=== PATIENT | female | born 1990 | race African-American/Black ===

== ENCOUNTER 2016-04-27 22:32 | Emergency (ER) | payer BC | END 2016-04-27 23:25 | disposition home or self-care (01) | LOC: D.ER 22:32 | DX: J01.90 Acute sinusitis, unspecified (principal); J20.9 Acute bronchitis, unspecified; K21.9 Gastro-esophageal reflux disease without esophagitis ==

== ENCOUNTER 2016-05-20 09:22 | Emergency (ER) | payer BC ==
[2016-05-20 10:03] LABS: BASOPHILS 0.1 % (0.0-2.0); EOSINOPHILS 1.7 % (0-7); HEMATOCRIT 34.8 % (36.0-48.0); HEMOGLOBIN 11.3 g/dL (12-16); IMMATURE GRANULOCYTES 0.1 % (0-5); LYMPHOCYTES 29.9 % (15-50); MCH 24.4 pg (26.0-34.0); MCHC 32.5 g/dL (31.0-37.0); MONOCYTES 8.7 % (2-11); NEUTROPHILS 59.5 % (40-80); PLATELET COUNT 364 10x3/uL (130-400); RBC 4.64 10x6/uL (4.00-5.40); RDW 14.8 % (11.5-14.5); WBC 7.6 10x3/uL (4.8-10.8)
[2016-05-20 10:15] LABS: HCG SERUM NEGATIVE (NEGATIVE)
[2016-05-20 10:17] LABS: APPEARANCE HAZY (CLEAR); BILIRUBIN NEGATIVE (NEGATIVE); COLOR YELLOW (YELLOW); GLUCOSE NEGATIVE (NEGATIVE); KETONE SMALL mg/dL (NEGATIVE); LEUKOCYTE ESTERASE NEGATIVE (NEGATIVE); NITRITE NEGATIVE (NEGATIVE); PROTEIN NEGATIVE (NEGATIVE); UROBILINOGEN NORMAL (NORMAL)
[2016-05-20 10:18] LABS: BACTERIA FEW /hpf (NONE SEEN); MUCUS <1+ /lpf (NONE SEEN); RED CELLS - URINE 0-5 /hpf (0-5); WHITE CELLS - URINE OCC /hpf (0-5)
[2016-05-20 10:34] LABS: ALBUMIN 4.4 g/dL (3.4-5.0); ALKALINE PHOSPHATASE 32 U/L (46-116); ALT (SGPT) 15 U/L (10-68); BILIRUBIN - TOTAL 0.58 mg/dL (0.2-1.3); CALC OSMOLALITY 275 mosm/kg (275-300); CALCIUM 9.3 mg/dL (8.5-10.1); CARBON DIOXIDE 28.3 mmol/L (21.0-32.0); CHLORIDE - SERUM 104 mmol/L (98-107); CREATININE - SERUM 0.7 mg/dL (0.6-1.3); GLUCOSE 85 mg/dL (74-106); POTASSIUM - SERUM 3.8 mmol/L (3.5-5.1); PROTEIN - SERUM 8.2 g/dL (6.4-8.2); SODIUM 139 mmol/L (136-145); UREA NITROGEN 9 mg/dL (7-18); eGFR NON AFRICAN AMERICAN > 90 mL/min (90-120)
== END 2016-05-20 12:42 | disposition home or self-care (01) ==
LOC: D.ER 09:22
PROVIDERS: Emergency Medicine
DX: R10.9 Unspecified abdominal pain (principal); K21.9 Gastro-esophageal reflux disease without esophagitis; F17.200 Nicotine dependence, unspecified, uncomplicated

== ENCOUNTER 2016-05-31 18:23 | Emergency (ER) | payer BC | END 2016-05-31 21:00 | disposition left against medical advice (07) | LOC: D.ER 18:23 | DX: R42 Dizziness and giddiness (principal) ==

== ENCOUNTER 2016-07-10 13:42 | Emergency (ER) | payer BC | END 2016-07-10 15:13 | disposition left against medical advice (07) | LOC: D.ER 13:42 | DX: R10.30 Lower abdominal pain, unspecified (principal) ==

== ENCOUNTER 2016-07-10 20:18 | Emergency (ER) | payer BC ==
[2016-07-10 21:18] LABS: BASOPHILS 0.2 % (0-2); EOSINOPHILS 2.2 % (0-7); HEMATOCRIT 36.5 % (36.0-48.0); HEMOGLOBIN 11.5 g/dL (12-16); IMMATURE GRANULOCYTES 0.3 % (0-5); LYMPHOCYTES 33.1 % (15-50); MCH 24.6 pg (26.0-34.0); MCHC 31.5 g/dL (31.0-37.0); MCV 78.2 fL (80.0-100.0); MEAN PLATELET VOLUME 10.2 fL (7.4-10.4); MONOCYTES 8.3 % (2-11); NEUTROPHILS 55.9 % (40-80); PLATELET COUNT 330 10x3/uL (130-400); RBC 4.67 10x6/uL (4.00-5.40); RDW 14.6 % (11.5-14.5); WBC 9.9 10x3/uL (4.8-10.8)
[2016-07-10 21:35] LABS: HCG SERUM NEGATIVE (NEGATIVE)
[2016-07-10 21:36] LABS: ALBUMIN 4.5 g/dL (3.4-5.0); ALKALINE PHOSPHATASE 40 U/L (46-116); ALT (SGPT) 17 U/L (10-68); BILIRUBIN - TOTAL 0.13 mg/dL (0.2-1.3); CALC OSMOLALITY 278 mosm/kg (275-300); CALCIUM 9.3 mg/dL (8.5-10.1); CARBON DIOXIDE 28.8 mmol/L (21.0-32.0); CHLORIDE - SERUM 102 mmol/L (98-107); CREATININE - SERUM 0.7 mg/dL (0.6-1.3); GLUCOSE 114 mg/dL (74-106); POTASSIUM - SERUM 3.7 mmol/L (3.5-5.1); SODIUM 140 mmol/L (136-145); UREA NITROGEN 11 mg/dL (7-18); eGFR NON AFRICAN AMERICAN > 90 mL/min (90-120)
== END 2016-07-11 00:57 | disposition home or self-care (01) ==
LOC: D.ER 20:18
PROVIDERS: Family Medicine
DX: K29.00 Acute gastritis without bleeding (principal); R11.10 Vomiting, unspecified; K21.9 Gastro-esophageal reflux disease without esophagitis

== ENCOUNTER 2016-08-12 14:40 | Emergency (ER) | payer MEDICAID | END 2016-08-12 16:20 | disposition left against medical advice (07) | LOC: D.ER 14:40 | DX: O21.0 Mild hyperemesis gravidarum (principal); Z3A.01 Less than 8 weeks gestation of pregnancy ==

== ENCOUNTER 2016-09-10 15:56 | Emergency (ER) | payer MEDICAID ==
[2016-09-10 17:12] LABS: BASOPHILS 0.1 % (0-2); EOSINOPHILS 1.1 % (0-7); HEMATOCRIT 32.7 % (36.0-48.0); HEMOGLOBIN 10.6 g/dL (12-16); IMMATURE GRANULOCYTES 0.4 % (0-5); LYMPHOCYTES 19.3 % (15-50); MCH 24.3 pg (26.0-34.0); MCHC 32.4 g/dL (31.0-37.0); MCV 74.8 fL (80.0-100.0); MEAN PLATELET VOLUME 9.9 fL (7.4-10.4); MONOCYTES 9.3 % (2-11); NEUTROPHILS 69.8 % (40-80); PLATELET COUNT 310 10x3/uL (130-400); RBC 4.37 10x6/uL (4.00-5.40); RDW 13.7 % (11.5-14.5); WBC 9.4 10x3/uL (4.8-10.8)
[2016-09-10 17:22] LABS: APPEARANCE CLEAR (CLEAR); BILIRUBIN NEGATIVE (NEGATIVE); COLOR YELLOW (YELLOW); GLUCOSE NEGATIVE (NEGATIVE); KETONE SMALL mg/dL (NEGATIVE); LEUKOCYTE ESTERASE NEGATIVE (NEGATIVE); NITRITE NEGATIVE (NEGATIVE); PROTEIN NEGATIVE (NEGATIVE); SPECIFIC GRAVITY 1.015 (1.005-1.020); UROBILINOGEN NORMAL (NORMAL)
[2016-09-10 17:35] LABS: ALBUMIN 3.7 g/dL (3.4-5.0); ALKALINE PHOSPHATASE 29 U/L (46-116); ALT (SGPT) 14 U/L (10-68); BILIRUBIN - TOTAL 0.16 mg/dL (0.2-1.3); CALC OSMOLALITY 272 mosm/kg (275-300); CALCIUM 9.3 mg/dL (8.5-10.1); CARBON DIOXIDE 25.9 mmol/L (21.0-32.0); CHLORIDE - SERUM 103 mmol/L (98-107); CREATININE - SERUM 0.6 mg/dL (0.6-1.3); GLUCOSE 78 mg/dL (74-106); POTASSIUM - SERUM 3.5 mmol/L (3.5-5.1); PROTEIN - SERUM 7.7 g/dL (6.4-8.2); SODIUM 138 mmol/L (136-145); UREA NITROGEN 6 mg/dL (7-18); eGFR NON AFRICAN AMERICAN > 90 mL/min (90-120)
[2016-09-10 17:59] LABS: HCG - QUANTITATIVE (MATERNAL) 107481 mIU/mL
== END 2016-09-10 18:28 | disposition home or self-care (01) ==
LOC: D.ER 15:56
PROVIDERS: Physician Assistant
DX: O26.891 Other specified pregnancy related conditions, first trimester (principal); Z3A.11 11 weeks gestation of pregnancy; S30.1XXA Contusion of abdominal wall, initial encounter; W22.8XXA Striking against or struck by other objects, initial encounter; Y93.89 Activity, other specified; Y92.89 Other specified places as the place of occurrence of the external cause

== ENCOUNTER 2016-10-08 15:22 | Emergency (ER) | payer MEDICAID | END 2016-10-08 18:15 | disposition home or self-care (01) | LOC: D.ER 15:22 | DX: O26.892 Other specified pregnancy related conditions, second trimester (principal); Z3A.15 15 weeks gestation of pregnancy; R21 Rash and other nonspecific skin eruption; L98.8 Other specified disorders of the skin and subcutaneous tissue; K21.9 Gastro-esophageal reflux disease without esophagitis ==

== ENCOUNTER 2016-10-11 05:58 | Emergency (ER) | payer MEDICAID | END 2016-10-11 06:22 | disposition home or self-care (01) | LOC: D.ER 05:58 | DX: O26.86 Pruritic urticarial papules and plaques of pregnancy (PUPPP) (principal); Z3A.15 15 weeks gestation of pregnancy; K21.9 Gastro-esophageal reflux disease without esophagitis ==

== ENCOUNTER → 2016-11-14 19:07 | Outpatient (CLI) | payer MEDICAID | END | disposition home or self-care (01) | LOC: D.LDO 19:07 | DX: O26.892 Other specified pregnancy related conditions, second trimester (principal); Z3A.20 20 weeks gestation of pregnancy ==

== ENCOUNTER → 2016-12-08 13:47 | Outpatient (CLI) | payer MEDICAID ==
[~2016-12-08 13:47] MED LIST: FAMOTIDINE10 MG PO; IBUPROFEN800 MG PO; MACROBID100 MG PO; PRENATAL COMPLE1 TAB PO; REGLAN10 MG PO; SPRINTEC1 TAB PO
[2016-12-08 14:49] LABS: APPEARANCE CLEAR (CLEAR); BILIRUBIN NEGATIVE (NEGATIVE); COLOR STRAW (YELLOW); GLUCOSE NEGATIVE (NEGATIVE); KETONE NEGATIVE (NEGATIVE); NITRITE NEGATIVE (NEGATIVE); PROTEIN NEGATIVE (NEGATIVE); SPECIFIC GRAVITY 1.005 (1.005-1.020); UROBILINOGEN NORMAL (NORMAL)
[2016-12-08 15:20] LABS: BASOPHILS 0.1 % (0-2); HEMATOCRIT 29.3 % (36.0-48.0); HEMOGLOBIN 9.4 g/dL (12-16); IMMATURE GRANULOCYTES 1.6 % (0-5); LYMPHOCYTES 16.2 % (15-50); MCH 24.5 pg (26.0-34.0); MCHC 32.1 g/dL (31.0-37.0); MCV 76.5 fL (80.0-100.0); MONOCYTES 10.3 % (2-11); NEUTROPHILS 70.8 % (40-80); PLATELET COUNT 357 10x3/uL (130-400); RBC 3.83 10x6/uL (4.00-5.40); WBC 11.5 10x3/uL (4.8-10.8)
[2016-12-08 16:00] LABS: ALKALINE PHOSPHATASE 43 U/L (46-116); ALT (SGPT) 53 U/L (10-68); AMYLASE - SERUM 79 U/L (25-115); BILIRUBIN - TOTAL 0.11 mg/dL (0.2-1.3); CALC OSMOLALITY 273 mosm/kg (275-300); CALCIUM 8.4 mg/dL (8.5-10.1); CARBON DIOXIDE 25.6 mmol/L (21.0-32.0); CHLORIDE - SERUM 105 mmol/L (98-107); CREATININE - SERUM 0.4 mg/dL (0.6-1.3); LIPASE 70 U/L (73-393); POTASSIUM - SERUM 3.7 mmol/L (3.5-5.1); PROTEIN - SERUM 6.5 g/dL (6.4-8.2); SODIUM 140 mmol/L (136-145); UREA NITROGEN 4 mg/dL (7-18); eGFR NON AFRICAN AMERICAN > 90 mL/min (90-120)
[2016-12-08 16:02] LABS: GLUCOSE 66 mg/dL (74-106)
[2017-03-23 22:15] VITALS: BMI 30.6
== END | disposition home or self-care (01) ==
LOC: D.LDO 13:47
PROVIDERS: Obstetrics & Gynecology
DX: O26.892 Other specified pregnancy related conditions, second trimester (principal); Z3A.23 23 weeks gestation of pregnancy

== ENCOUNTER 2017-01-07 18:53 | Outpatient (CLI) | payer MEDICAID ==
[2017-02-16] MEDS ORDERED: PRENATAL COMPLE1 TAB PO (01:39)
[2017-03-23 22:15] VITALS: BMI 30.6
== END 2017-01-07 20:03 | disposition home or self-care (01) ==
LOC: D.LDO 18:53
DX: O36.5930 Maternal care for other known or suspected poor fetal growth, third trimester, not applicable or unspecified (principal); Z3A.28 28 weeks gestation of pregnancy; W19.XXXA Unspecified fall, initial encounter; Y93.89 Activity, other specified; Y92.029 Unspecified place in mobile home as the place of occurrence of the external cause

== ENCOUNTER 2017-01-15 13:56 | Emergency (ER) | payer MEDICAID ==
[2017-02-16] MEDS ORDERED: PRENATAL COMPLE1 TAB PO (01:39)
[2017-03-23 22:15] VITALS: BMI 30.6
== END 2017-01-15 16:41 | disposition left against medical advice (07) ==
LOC: D.ER 13:56
DX: L02.11 Cutaneous abscess of neck (principal)

== ENCOUNTER 2017-01-26 23:29 | Outpatient (CLI) | payer MEDICAID ==
[2017-01-27 00:02] LABS: APPEARANCE CLEAR (CLEAR); BILIRUBIN NEGATIVE (NEGATIVE); COLOR YELLOW (YELLOW); GLUCOSE NEGATIVE (NEGATIVE); KETONE NEGATIVE (NEGATIVE); NITRITE NEGATIVE (NEGATIVE); PROTEIN NEGATIVE (NEGATIVE); UROBILINOGEN NORMAL (NORMAL)
[2017-02-16] MEDS ORDERED: PRENATAL COMPLE1 TAB PO (01:39)
[2017-03-23 22:15] VITALS: BMI 30.6
== END 2017-01-27 00:22 | disposition home or self-care (01) ==
LOC: D.LD 23:29 → D.LDO 23:29
PROVIDERS: Obstetrics & Gynecology
DX: O26.893 Other specified pregnancy related conditions, third trimester (principal); Z3A.30 30 weeks gestation of pregnancy; M54.5 Low back pain; R10.30 Lower abdominal pain, unspecified; N89.8 Other specified noninflammatory disorders of vagina

== ENCOUNTER → 2017-02-11 16:43 | Outpatient (CLI) | payer MEDICAID ==
[2017-03-23 22:15] VITALS: BMI 30.6
== END | disposition home or self-care (01) ==
LOC: D.LDO 16:43
DX: O36.5930 Maternal care for other known or suspected poor fetal growth, third trimester, not applicable or unspecified (principal); Z3A.32 32 weeks gestation of pregnancy

== ENCOUNTER → 2017-02-13 17:31 | Outpatient (CLI) | payer MEDICAID ==
[2017-03-23 22:15] VITALS: BMI 30.6
== END | disposition home or self-care (01) ==
LOC: D.LDO 17:31
DX: O36.5930 Maternal care for other known or suspected poor fetal growth, third trimester, not applicable or unspecified (principal); Z3A.33 33 weeks gestation of pregnancy

== ENCOUNTER → 2017-02-16 00:58 | Outpatient (CLI) | payer MEDICAID ==
[2017-03-23 22:15] VITALS: BMI 30.6
== END | disposition home or self-care (01) ==
LOC: D.LDO 00:58
DX: O26.893 Other specified pregnancy related conditions, third trimester (principal); Z3A.33 33 weeks gestation of pregnancy

== ENCOUNTER → 2017-02-18 16:41 | Outpatient (CLI) | payer MEDICAID ==
[2017-03-23 22:15] VITALS: BMI 30.6
== END | disposition home or self-care (01) ==
LOC: D.LDO 16:41
DX: O36.5930 Maternal care for other known or suspected poor fetal growth, third trimester, not applicable or unspecified (principal); Z3A.34 34 weeks gestation of pregnancy

== ENCOUNTER → 2017-02-20 15:00 | Outpatient (CLI) | payer MEDICAID ==
[2017-03-23 22:15] VITALS: BMI 30.6
== END | disposition home or self-care (01) ==
LOC: D.LDO 15:00
DX: O36.5930 Maternal care for other known or suspected poor fetal growth, third trimester, not applicable or unspecified (principal); Z3A.34 34 weeks gestation of pregnancy

== ENCOUNTER → 2017-02-26 15:35 | Outpatient (CLI) | payer MEDICAID ==
[2017-03-23 22:15] VITALS: BMI 30.6
== END | disposition home or self-care (01) ==
LOC: D.LDO 15:35
DX: O36.5930 Maternal care for other known or suspected poor fetal growth, third trimester, not applicable or unspecified (principal); Z3A.35 35 weeks gestation of pregnancy

== ENCOUNTER → 2017-02-28 10:37 | Outpatient (CLI) | payer MEDICAID ==
[2017-02-28 12:02] LABS: APPEARANCE CLEAR (CLEAR); BILIRUBIN NEGATIVE (NEGATIVE); COLOR YELLOW (YELLOW); GLUCOSE NEGATIVE (NEGATIVE); KETONE NEGATIVE (NEGATIVE); NITRITE NEGATIVE (NEGATIVE); PROTEIN NEGATIVE (NEGATIVE); UROBILINOGEN NORMAL (NORMAL)
[2017-03-23 22:15] VITALS: BMI 30.6
== END | disposition home or self-care (01) ==
LOC: D.LDO 10:37
PROVIDERS: Obstetrics & Gynecology
DX: Z34.83 Encounter for supervision of other normal pregnancy, third trimester (principal); Z3A.35 35 weeks gestation of pregnancy; R11.2 Nausea with vomiting, unspecified

== ENCOUNTER 2017-03-04 00:25 | Outpatient (CLI) | payer MEDICAID ==
[~2017-03-04 00:25] MED LIST changes: -FAMOTIDINE10 MG PO; -IBUPROFEN800 MG PO; -MACROBID100 MG PO; -REGLAN10 MG PO; -SPRINTEC1 TAB PO
[2017-03-04 00:42] LABS: APPEARANCE CLEAR (CLEAR); BILIRUBIN NEGATIVE (NEGATIVE); COLOR STRAW (YELLOW); GLUCOSE NEGATIVE (NEGATIVE); KETONE NEGATIVE (NEGATIVE); NITRITE NEGATIVE (NEGATIVE); PROTEIN NEGATIVE (NEGATIVE); SPECIFIC GRAVITY 1.005 (1.005-1.020); UROBILINOGEN NORMAL (NORMAL)
[2017-03-23 22:15] VITALS: BMI 30.6
== END 2017-03-04 00:51 | disposition home or self-care (01) ==
LOC: D.LDO 00:25 → D.LD 00:25 → D.LDO 00:34 → D.LD 01:01
PROVIDERS: Obstetrics & Gynecology
DX: O36.8130 Decreased fetal movements, third trimester, not applicable or unspecified (principal); Z3A.36 36 weeks gestation of pregnancy

== ENCOUNTER → 2017-03-06 19:20 | Outpatient (CLI) | payer MEDICAID ==
[~2017-03-06 19:20] MED LIST changes: +FAMOTIDINE10 MG PO; +IBUPROFEN800 MG PO; +MACROBID100 MG PO; +REGLAN10 MG PO; +SPRINTEC1 TAB PO
[2017-03-23 22:15] VITALS: BMI 30.6
== END | disposition home or self-care (01) ==
LOC: D.LDO 19:20
DX: O26.893 Other specified pregnancy related conditions, third trimester (principal); Z3A.36 36 weeks gestation of pregnancy

== ENCOUNTER → 2017-03-10 14:12 | Outpatient (CLI) | payer MEDICAID ==
[2017-03-23 22:15] VITALS: BMI 30.6
== END | disposition home or self-care (01) ==
LOC: D.LDO 14:12
DX: O36.5930 Maternal care for other known or suspected poor fetal growth, third trimester, not applicable or unspecified (principal)

== ENCOUNTER → 2017-03-14 09:12 | Outpatient (CLI) | payer MEDICAID ==
[2017-03-23 22:15] VITALS: BMI 30.6
== END | disposition home or self-care (01) ==
LOC: D.LDO 09:12
DX: O36.5930 Maternal care for other known or suspected poor fetal growth, third trimester, not applicable or unspecified (principal); Z3A.37 37 weeks gestation of pregnancy

== ENCOUNTER → 2017-03-14 16:58 | Outpatient (CLI) | payer MEDICAID ==
[2017-03-14 18:44] LABS: APPEARANCE CLEAR (CLEAR); BILIRUBIN NEGATIVE (NEGATIVE); COLOR COLORLESS (YELLOW); GLUCOSE NEGATIVE (NEGATIVE); KETONE NEGATIVE (NEGATIVE); NITRITE NEGATIVE (NEGATIVE); PROTEIN NEGATIVE (NEGATIVE); UROBILINOGEN NORMAL (NORMAL)
[2017-03-23 22:15] VITALS: BMI 30.6
== END | disposition home or self-care (01) ==
LOC: D.LDO 16:58 → D.LABREF 16:58
PROVIDERS: Obstetrics & Gynecology
DX: O26.899 Other specified pregnancy related conditions, unspecified trimester (principal); Z3A.00 Weeks of gestation of pregnancy not specified

== ENCOUNTER → 2017-03-15 11:40 | Outpatient (CLI) | payer MEDICAID ==
[2017-03-23 22:15] VITALS: BMI 30.6
== END | disposition home or self-care (01) ==
LOC: D.LDO 11:40
DX: O26.899 Other specified pregnancy related conditions, unspecified trimester (principal); Z3A.00 Weeks of gestation of pregnancy not specified; O36.8190 Decreased fetal movements, unspecified trimester, not applicable or unspecified; R10.30 Lower abdominal pain, unspecified

== ENCOUNTER 2017-03-18 20:06 | Outpatient (CLI) | payer MEDICAID ==
[~2017-03-18 20:06] MED LIST changes: -FAMOTIDINE10 MG PO; -IBUPROFEN800 MG PO; -MACROBID100 MG PO; -REGLAN10 MG PO; -SPRINTEC1 TAB PO
[2017-03-23 22:15] VITALS: BMI 30.6
== END 2017-03-18 20:34 | disposition home or self-care (01) ==
LOC: D.LDO 20:06
DX: O36.5930 Maternal care for other known or suspected poor fetal growth, third trimester, not applicable or unspecified (principal); Z3A.38 38 weeks gestation of pregnancy

== ENCOUNTER → 2017-03-20 11:58 | Outpatient (CLI) | payer MEDICAID ==
[~2017-03-20 11:58] MED LIST changes: +FAMOTIDINE10 MG PO; +IBUPROFEN800 MG PO; +MACROBID100 MG PO; +REGLAN10 MG PO; +SPRINTEC1 TAB PO
[2017-03-20 12:52] LABS: APPEARANCE CLEAR (CLEAR); BILIRUBIN NEGATIVE (NEGATIVE); COLOR YELLOW (YELLOW); GLUCOSE NEGATIVE (NEGATIVE); KETONE NEGATIVE (NEGATIVE); NITRITE NEGATIVE (NEGATIVE); PROTEIN NEGATIVE (NEGATIVE); UROBILINOGEN NORMAL (NORMAL)
[2017-03-20 12:53] LABS: BACTERIA MODERATE /hpf (NONE SEEN); EPITHELIAL CELLS 0-5 /hpf (0-5); RED CELLS - URINE RARE /hpf (0-5); WHITE CELLS - URINE 0-5 /hpf (0-5)
[2017-03-20 12:54] LABS: MUCUS <1+ /lpf (NONE SEEN)
[2017-03-23 22:15] VITALS: BMI 30.6
== END | disposition home or self-care (01) ==
LOC: D.LDO 11:58
PROVIDERS: Obstetrics & Gynecology
DX: O36.5930 Maternal care for other known or suspected poor fetal growth, third trimester, not applicable or unspecified (principal); Z3A.38 38 weeks gestation of pregnancy

== ENCOUNTER 2017-03-23 08:56 | Inpatient (IN) | payer MEDICAID ==
[~2017-03-23] VITALS: Ht 162.6 cm; Wt 80.9 kg
--- NOTE | ~2017-03-23 | OP ---
PATIENT NAME: YUE CHU MEDICAL RECORD: [id number] :92 LOCATION:[facility] ADMISSION DATE:03/23/17 SURGEON: NICKIE TERRAZAS MD DATE OF OPERATION: 03/24/2017 DELIVERY NOTE PREDELIVERY DIAGNOSIS: at 39 weeks' gestation. POSTDELIVERY DIAGNOSIS: Mother delivered at 39 weeks. PROCEDURE: Induction of labor with vaginal . ATTENDING: Nickie Terrazas MD ANESTHESIOLOGIST: Dr. Siegel. ANESTHETIC: Continuous lumbar epidural. FINDINGS: Viable female infant, vertex presentation, Apgars 9 and 9, weight 2825 grams. First-degree laceration without repair. The patient's placenta was delivered spontaneous and intact. ESTIMATED BLOOD LOSS: 300 cc. DISPOSITION: Mother and recovered in the room. TRANSINT:[id number] Voice Confirmation ID: [id number] DOCUMENT ID: [id number] NICKIE TERRAZAS MD at 1647 CC: [id number] DICTATION DATE: 03/24/17 1320 BODY ENGINEER: 03/24/17 1427 ADM IN [facility] [address] [place] [address]
--- NOTE | ~2017-03-23 | DS ---
PATIENT:YUE CHU :89 MEDICAL RECORD: [id number] DISCHARGE SUMMARY ADMISSION DATE: 03/23/17 DISCHARGE DATE: 03/26/17 ADMISSION DATE: 03/23/2017 DISCHARGE DATE: 03/26/2017 ADMISSION DIAGNOSIS: at term. DISCHARGE DIAGNOSIS: Mother delivered at term. PROCEDURE: Logistical induction of labor with vaginal . ATTENDING: Dr. Chester. HISTORY OF PRESENT ILLNESS: See the H&P in the chart. SUMMARY OF HOSPITALIZATION: The patient was admitted to the hospital, underwent induction of labor and delivered without incident. The patient is doing well at the time of discharge with minimal lochia reported. The uterus was firm and below the level of the umbilicus. The patient has been afebrile. She is bottle feeding. The patient has been given standard precautions. Discharge medications will include Sprintec, which she has been instructed to start 2 Sundays after the delivery and Motrin for pain. Follow up will be arranged in 4-6 weeks. TRANSINT:[id number] Voice Confirmation ID: [id number] DOCUMENT ID: [id number] NICKIE CHESTER MD at 0830 CC: [id number] DICTATION DATE: 03/26/17 0714 WAITER/WAITRESS BUFFET: 03/26/17 1659 DIS IN 03/26/17 [id number] [place] [address]
[~2017-03-23 08:56] MED LIST changes: -FAMOTIDINE10 MG PO; -IBUPROFEN800 MG PO; -MACROBID100 MG PO; -REGLAN10 MG PO; -SPRINTEC1 TAB PO
[2017-03-23] MEDS ORDERED: REGLAN10 MG PO (21:58)
[2017-03-23] MEDS ORDERED: FAMOTIDINE10 MG PO (21:58)
[2017-03-23] MEDS ORDERED: MACROBID100 MG PO (21:58)
[2017-03-23 22:15] VITALS: BP 133/82; Ht 162.6 cm; Wt 80.9 kg
[2017-03-23 23:39] LABS: HEMATOCRIT 31.1 % (36.0-48.0); HEMOGLOBIN 9.8 g/dL (12-16); MCH 24.2 pg (26.0-34.0); MCHC 31.5 g/dL (31.0-37.0); MCV 76.8 fL (80.0-100.0); RBC 4.05 10x6/uL (4.00-5.40); RDW 15.9 % (11.5-14.5); WBC 12.9 10x3/uL (4.8-10.8)
[2017-03-23 23:42] LABS: COLOR YELLOW (YELLOW)
[2017-03-23 23:43] LABS: APPEARANCE CLEAR (CLEAR); BILIRUBIN NEGATIVE (NEGATIVE); GLUCOSE NEGATIVE (NEGATIVE); KETONE NEGATIVE (NEGATIVE); NITRITE NEGATIVE (NEGATIVE); PROTEIN NEGATIVE (NEGATIVE); UROBILINOGEN NORMAL (NORMAL)
[2017-03-24 15:05] VITALS: BP 159/96
[2017-03-24 19:40] VITALS: BP 121/61
[2017-03-24 21:37] VITALS: BP 133/74
[2017-03-24 22:55] LABS: BASOPHILS 0.1 % (0-2); EOSINOPHILS 0.5 % (0-7); HEMATOCRIT 28.6 % (36.0-48.0); IMMATURE GRANULOCYTES 0.7 % (0-5); LYMPHOCYTES 9.6 % (15-50); MCH 24.2 pg (26.0-34.0); MCHC 31.5 g/dL (31.0-37.0); MCV 76.9 fL (80.0-100.0); MONOCYTES 8.4 % (2-11); NEUTROPHILS 80.7 % (40-80); PLATELET COUNT 353 10x3/uL (130-400); RBC 3.72 10x6/uL (4.00-5.40); RDW 15.6 % (11.5-14.5)
[2017-03-24 23:03] VITALS: BP 127/74
[2017-03-25 07:27] LABS: RAPID PLASMA REAGIN Non Reactive (Non Reactive)
[2017-03-25 07:51] VITALS: BP 120/81
[2017-03-25 12:40] VITALS: BP 119/69
[2017-03-25 19:42] VITALS: BP 134/69
[2017-03-26 07:36] VITALS: BP 126/60
[2017-03-26] MEDS ORDERED: SPRINTEC1 TAB PO (09:56)
[2017-03-26] MEDS ORDERED: IBUPROFEN800 MG PO (09:58)
== END 2017-03-26 12:25 | disposition home or self-care (01) | DRG 775 ==
LOC: D.SDCHOLD 08:56 → D.LD 21:33
PROVIDERS: Obstetrics & Gynecology
PROC: 3E033VJ Introduction of Other Hormone into Peripheral Vein, Percutaneous Approach (ICD-10-PCS; principal; 2017-03-24)
PROC: 10E0XZZ Delivery of Products of Conception, External Approach (ICD-10-PCS; 2017-03-24)
DX: O99.824 Streptococcus B carrier state complicating childbirth (principal); Z3A.39 39 weeks gestation of pregnancy; Z37.0 Single live birth; O70.0 First degree perineal laceration during delivery; Z87.891 Personal history of nicotine dependence

== ENCOUNTER 2017-11-07 08:32 | Emergency (ER) | payer SELFPAY ==
[~2017-11-07] VITALS: Ht 162.6 cm; Wt 65.9 kg
[~2017-11-07 08:32] MED LIST changes: +FAMOTIDINE10 MG PO; +IBUPROFEN800 MG PO; +MACROBID100 MG PO; +REGLAN10 MG PO; +SPRINTEC1 TAB PO
[2017-11-07 08:44] VITALS: Ht 162.6 cm; Wt 65.9 kg
[2017-11-07 09:55] LABS: UDS - AMPHET NEGATIVE QUAL (NEGATIVE); UDS - BARB NEGATIVE QUAL (NEGATIVE); UDS - BENZO NEGATIVE QUAL (NEGATIVE); UDS - COCAINE NEGATIVE QUAL (NEGATIVE); UDS - OPIATE NEGATIVE QUAL (NEGATIVE); UDS - PCP NEGATIVE QUAL (NEGATIVE); UDS - THC NEGATIVE QUAL (NEGATIVE)
[2017-11-07 10:30] LABS: HCG SERUM NEGATIVE (NEGATIVE)
[2017-11-07 10:30] LABS: APPEARANCE HAZY (CLEAR); BACTERIA MODERATE /hpf (NONE SEEN); BILIRUBIN NEGATIVE (NEGATIVE); COLOR YELLOW (YELLOW); EPITHELIAL CELLS 0-5 /hpf (0-5); GLUCOSE NEGATIVE (NEGATIVE); KETONE NEGATIVE (NEGATIVE); NITRITE NEGATIVE (NEGATIVE); PROTEIN NEGATIVE (NEGATIVE); SPECIFIC GRAVITY 1.015 (1.005-1.020); UROBILINOGEN NORMAL (NORMAL); WHITE CELLS - URINE 0-5 /hpf (0-5)
[2017-11-07 10:31] LABS: MUCUS <1+ /lpf (NONE SEEN)
[2017-11-07 10:36] LABS: ALBUMIN 3.7 g/dL (3.4-5.0); ALKALINE PHOSPHATASE 32 U/L (46-116); ALT (SGPT) 17 U/L (10-68); AMYLASE - SERUM 84 U/L (25-115); BILIRUBIN - TOTAL 0.24 mg/dL (0.2-1.3); CALC OSMOLALITY 269 mosm/kg (275-300); CALCIUM 8.5 mg/dL (8.5-10.1); CARBON DIOXIDE 25.2 mmol/L (21.0-32.0); CHLORIDE - SERUM 105 mmol/L (98-107); CREATININE - SERUM 0.8 mg/dL (0.6-1.3); GLUCOSE 80 mg/dL (74-106); LIPASE 90 U/L (73-393); POTASSIUM - SERUM 3.6 mmol/L (3.5-5.1); PROTEIN - SERUM 7.2 g/dL (6.4-8.2); SODIUM 136 mmol/L (136-145); UREA NITROGEN 11 mg/dL (7-18); eGFR NON AFRICAN AMERICAN > 90 mL/min (90-120)
[2017-11-07 10:42] LABS: HEMATOCRIT 32.2 % (36.0-48.0); HEMOGLOBIN 10.4 g/dL (12-16); LYMPHOCYTES 27.8 % (15-50); MCH 24.3 pg (26.0-34.0); MCHC 32.3 g/dL (31.0-37.0); MCV 75.2 fL (80.0-100.0); MEAN PLATELET VOLUME 10.3 fL (7.4-10.4); NEUTROPHILS 63.4 % (40-80); PLATELET COUNT 372 10x3/uL (130-400); RBC 4.28 10x6/uL (4.00-5.40); RDW 15.4 % (11.5-14.5); WBC 6.4 10x3/uL (4.8-10.8)
[2017-11-07] MEDS ORDERED: PROTONIX40 MG PO (11:05)
[2017-11-07 11:29] VITALS: BP 111/64
== END 2017-11-07 11:30 | disposition home or self-care (01) ==
LOC: D.ER 08:32
PROVIDERS: Family Medicine
DX: R10.9 Unspecified abdominal pain (principal); G43.909 Migraine, unspecified, not intractable, without status migrainosus; Z86.59 Personal history of other mental and behavioral disorders

== ENCOUNTER 2018-01-17 22:44 | Emergency (ER) | payer SELFPAY ==
[~2018-01-17] VITALS: Ht 162.6 cm; Wt 64.5 kg
[~2018-01-17 22:44] MED LIST changes: +PROTONIX40 MG PO
[2018-01-17 22:47] VITALS: Ht 162.6 cm; Wt 64.5 kg
[2018-01-17 23:22] LABS: BASOPHILS 0.1 % (0-2); EOSINOPHILS 1.2 % (0-7); HEMATOCRIT 31.9 % (36.0-48.0); HEMOGLOBIN 10.2 g/dL (12-16); IMMATURE GRANULOCYTES 0.2 % (0-5); LYMPHOCYTES 37.6 % (15-50); MCH 24.1 pg (26.0-34.0); MCV 75.4 fL (80.0-100.0); MEAN PLATELET VOLUME 9.2 fL (7.4-10.4); MONOCYTES 8.6 % (2-11); NEUTROPHILS 52.3 % (40-80); PLATELET COUNT 384 10x3/uL (130-400); RBC 4.23 10x6/uL (4.00-5.40); RDW 14.1 % (11.5-14.5); WBC 9.2 10x3/uL (4.8-10.8)
[2018-01-17 23:35] LABS: ALBUMIN 3.8 g/dL (3.4-5.0); ALKALINE PHOSPHATASE 29 U/L (46-116); ALT (SGPT) 11 U/L (10-68); BILIRUBIN - TOTAL 0.16 mg/dL (0.2-1.3); CALC OSMOLALITY 273 mosm/kg (275-300); CALCIUM 8.9 mg/dL (8.5-10.1); CARBON DIOXIDE 26.1 mmol/L (21.0-32.0); CHLORIDE - SERUM 103 mmol/L (98-107); CREATININE - SERUM 0.7 mg/dL (0.6-1.3); GLUCOSE 95 mg/dL (74-106); POTASSIUM - SERUM 3.6 mmol/L (3.5-5.1); PROTEIN - SERUM 7.7 g/dL (6.4-8.2); SODIUM 137 mmol/L (136-145); UREA NITROGEN 13 mg/dL (7-18); eGFR NON AFRICAN AMERICAN > 90 mL/min (90-120)
[2018-01-17 23:39] LABS: AMYLASE - SERUM 89 U/L (25-115); LIPASE 92 U/L (73-393)
[2018-01-17 23:43] LABS: TROPONIN-I < 0.017 ng/mL (0.000-0.060)
[2018-01-18 00:10] LABS: HCG SERUM NEGATIVE (NEGATIVE)
[2018-01-18 00:24] LABS: APPEARANCE CLEAR (CLEAR); BILIRUBIN NEGATIVE (NEGATIVE); COLOR YELLOW (YELLOW); GLUCOSE NEGATIVE (NEGATIVE); HCG URINE NEGATIVE (NEGATIVE); KETONE NEGATIVE (NEGATIVE); NITRITE NEGATIVE (NEGATIVE); PROTEIN NEGATIVE (NEGATIVE); UROBILINOGEN NORMAL (NORMAL)
[2018-01-18] MEDS ORDERED: NAPROSYN500 MG PO (01:56)
[2018-01-18 02:08] VITALS: BP 112/82
[2018-01-21 08:22] LABS: CHLAMYDIA TRACHOMATIS, NAA Negative (Negative)
== END 2018-01-18 02:08 | disposition home or self-care (01) ==
LOC: D.ER 22:44
PROVIDERS: Family Medicine
DX: G89.29 Other chronic pain (principal); N83.209 Unspecified ovarian cyst, unspecified side; F90.9 Attention-deficit hyperactivity disorder, unspecified type; F31.9 Bipolar disorder, unspecified

== ENCOUNTER → 2019-01-25 10:44 | Outpatient (CLI) | payer MEDICAID ==
[2018-01-17 22:47] VITALS: BMI 24.4
[~2019-01-25 10:44] MED LIST changes: +NAPROSYN500 MG PO
== END | disposition home or self-care (01) ==
LOC: D.LABREF 10:44
PROVIDERS: ATTEND Nurse Practitioner Family
DX: R10.2 Pelvic and perineal pain (principal)

== ENCOUNTER 2019-01-27 19:39 | Emergency (ER) | payer MEDICAID ==
[~2019-01-27] VITALS: Ht 162.6 cm; Wt 65.5 kg
[2019-01-27 19:45] VITALS: Ht 162.6 cm; Wt 65.5 kg
[2019-01-27 20:27] LABS: BASOPHILS 0.1 % (0-2); EOSINOPHILS 0.6 % (0-7); HEMATOCRIT 32.6 % (36.0-48.0); HEMOGLOBIN 10.4 g/dL (12-16); IMMATURE GRANULOCYTES 0.2 % (0-5); LYMPHOCYTES 30.7 % (15-50); MCH 24.5 pg (26.0-34.0); MCHC 31.9 g/dL (31.0-37.0); MCV 76.9 fL (80.0-100.0); MEAN PLATELET VOLUME 9.5 fL (7.4-10.4); NEUTROPHILS 59.4 % (40-80); PLATELET COUNT 394 10x3/uL (130-400); RBC 4.24 10x6/uL (4.00-5.40); RDW 14.1 % (11.5-14.5); WBC 9.8 10x3/uL (4.8-10.8)
[2019-01-27 20:36] LABS: APPEARANCE CLEAR (CLEAR); BILIRUBIN NEGATIVE (NEGATIVE); COLOR YELLOW (YELLOW); GLUCOSE NEGATIVE (NEGATIVE); KETONE LARGE mg/dL (NEGATIVE); NITRITE NEGATIVE (NEGATIVE); PROTEIN NEGATIVE (NEGATIVE); UROBILINOGEN NORMAL (NORMAL)
[2019-01-27 20:37] LABS: BACTERIA MODERATE /hpf (NEGATIVE); EPITHELIAL CELLS 0-5 /hpf (0-5); MUCUS >1+ /lpf (NONE SEEN); RED CELLS - URINE 0-5 /hpf (0-5)
[2019-01-27 20:53] LABS: ALBUMIN 4.1 g/dL (3.4-5.0); ALKALINE PHOSPHATASE 32 U/L (46-116); ALT (SGPT) 18 U/L (10-68); BILIRUBIN - TOTAL 0.23 mg/dL (0.2-1.3); CALC OSMOLALITY 268 mosm/kg (275-300); CALCIUM 9.3 mg/dL (8.5-10.1); CARBON DIOXIDE 27.8 mmol/L (21.0-32.0); CHLORIDE - SERUM 103 mmol/L (98-107); CREATININE - SERUM 0.7 mg/dL (0.6-1.3); GLUCOSE 83 mg/dL (74-106); HCG - QUANTITATIVE (MATERNAL) 15321 mIU/mL; POTASSIUM - SERUM 3.9 mmol/L (3.5-5.1); PROTEIN - SERUM 8.1 g/dL (6.4-8.2); SODIUM 137 mmol/L (136-145); eGFR NON AFRICAN AMERICAN > 90 mL/min (90-120)
[2019-01-27 20:58] LABS: UREA NITROGEN 0 mg/dL (7-18)
[2019-01-28 01:43] VITALS: BP 103/64
== END 2019-01-28 01:44 | disposition home or self-care (01) ==
LOC: D.ER 19:39
PROVIDERS: Emergency Medicine
DX: O20.8 Other hemorrhage in early pregnancy (principal); Z3A.01 Less than 8 weeks gestation of pregnancy; L40.9 Psoriasis, unspecified

== ENCOUNTER 2019-03-05 07:00 | Day surgery (SDC) | payer MEDICAID ==
[2019-03-04 10:51] LABS: BASOPHILS 0.1 % (0-2); EOSINOPHILS 1.5 % (0-7); HEMATOCRIT 33.5 % (36.0-48.0); HEMOGLOBIN 10.9 g/dL (12-16); IMMATURE GRANULOCYTES 0.3 % (0-5); MCH 24.7 pg (26.0-34.0); MCHC 32.5 g/dL (31.0-37.0); MEAN PLATELET VOLUME 9.5 fL (7.4-10.4); MONOCYTES 8.7 % (2-11); NEUTROPHILS 68.4 % (40-80); PLATELET COUNT 374 10x3/uL (130-400); RBC 4.41 10x6/uL (4.00-5.40); RDW 14.7 % (11.5-14.5); WBC 10.1 10x3/uL (4.8-10.8)
[~2019-03-05] VITALS: Ht 162.6 cm; Wt 65.8 kg
[~2019-03-05 07:00] MED LIST changes: +BAYER CHEWABLE81 MG PO; +EZFE 200200 MG PO; +HYDROXYCHLOROQUINE 200 MG PO; +VITAMIN B-121000 MCG PO; +VITAMIN D31000 UNIT PO
[2019-03-05 07:57] VITALS: BP 108/60; Ht 162.6 cm; Wt 65.8 kg
--- NOTE | 2019-03-05 09:35 | NUR ---
ET TUBE IJN PLACE ON ADMIT
--- NOTE | 2019-03-05 09:35 | NUR ---
ET TUBE REMOVED @3717
--- NOTE | 2019-03-08 15:42 | OP ---
PATIENT NAME: YUE CHU MEDICAL RECORD: [id number] :92 LOCATION:[facility] ADMISSION DATE: SURGEON: BELINDA UMANA MD DATE OF OPERATION: 03/05/2019 PREOPERATIVE DIAGNOSIS: Missed at approximately 7 weeks. POSTOPERATIVE DIAGNOSIS: Missed at approximately 7 weeks. PROCEDURE: Suction dilation and curettage. SURGEON: Belinda Umana ESTIMATED BLOOD LOSS: 200 cc. IV FLUID: Per anesthesia record. FINDINGS: 1. Grossly normal-appearing cervix. 2. Obvious return of products of conception on D&C. SPECIMENS: Included products of conception and endometrial curettings. COMPLICATIONS: None apparent. PROCEDURE: The patient was taken to the operating room where general anesthesia was achieved without difficulty. The patient was then prepped and draped in normal sterile fashion in the dorsal lithotomy position. The bladder was drained of approximately 50 cc of clear urine. At this point, a Graves speculum was placed into the vagina and cervix was grasped on its anterior lip with a single tooth tenaculum. The patient was sounded to approximately 8 mm. A 9 mm dilator could not be introduced. At this point, a #8 straight curette was then used to perform 2 passes with obvious return of products of conception. Some brisk bleeding was noted and a third pass with the suction curette was performed, which causes significant reduction in the amount of bleeding. A #1 curette was then used to gently explore the 4 quadrants of the uterus and no significant tissue was noted. A final pass with the #8 suction curette was performed and no obvious return of products of conception at that point with only minimal bleeding. Tenaculum was removed. During the case, there was a tear in the anterior cervix where the tenaculum had pulled through. This was repaired with 2-0 Vicryl in a [id number] fashion with good hemostasis noted. The patient tolerated the procedure well, transported to the postanesthesia recovery stable without incident. TRANSINT:[id number] Voice Confirmation ID: [id number] DOCUMENT ID: [id number] BELINDA UMANA MD at 1542 CC: [id number] DICTATION DATE: 03/05/19 0935 CHIEF SUPPLY CHAIN OFFICER: 03/05/19 1253 [facility] 03/05/19 [facility] [address] [place] [address]
== END 2019-03-05 11:20 | disposition home or self-care (01) ==
LOC: D.OPS 07:00 → D.PAN 09:30 → D.OPS 09:30
PROVIDERS: ATTEND Obstetrics & Gynecology
DX: O02.1 Missed abortion (principal); M32.9 Systemic lupus erythematosus, unspecified; Z22.330 Carrier of Group B streptococcus; G43.909 Migraine, unspecified, not intractable, without status migrainosus

== ENCOUNTER 2019-05-10 11:43 | Day surgery (SDC) | payer MEDICAID ==
[2019-05-07 11:18] LABS: BASOPHILS 0.2 % (0-2); EOSINOPHILS 2.3 % (0-7); HEMATOCRIT 33.6 % (36.0-48.0); HEMOGLOBIN 10.3 g/dL (12-16); IMMATURE GRANULOCYTES 0.2 % (0-5); LYMPHOCYTES 35.9 % (15-50); MCH 24.5 pg (26.0-34.0); MCHC 30.7 g/dL (31.0-37.0); MEAN PLATELET VOLUME 9.5 fL (7.4-10.4); MONOCYTES 6.3 % (2-11); NEUTROPHILS 55.1 % (40-80); PLATELET COUNT 421 10x3/uL (130-400); RDW 14.7 % (11.5-14.5); WBC 6.2 10x3/uL (4.8-10.8)
[~2019-05-10] VITALS: Ht 162.6 cm; Wt 68.5 kg
[2019-05-10 07:36] VITALS: BP 113/63; Ht 162.6 cm; Wt 68.5 kg
[2019-05-10 07:44] LABS: HCG URINE NEGATIVE (NEGATIVE)
--- NOTE | 2019-05-10 10:04 | NUR ---
ET TUBE IN PLACE ON ADMIT
--- NOTE | 2019-05-10 10:05 | NUR ---
DERMABOND TO SITE
--- NOTE | 2019-05-10 10:05 | NUR ---
ET TUBE OUT @2200
--- NOTE | 2019-05-10 11:21 | NUR ---
1108 ASSISSTED UP TO BR UNABLE TO VOID CARMENCITA PAD PROVIDED UNDERWEAR PROVIDED, COOL CLOTH TO FACE, FRESH LINENS, MOTHER AT BEDSIDE.
[~2019-05-10 11:43] MED LIST changes: +PREDNISONE1 MG PO; +SPRINTEC 28 DA1 EAC1 PO
--- NOTE | 2019-05-10 12:24 | NUR ---
1220 ASSISSTED UP TO BR STATES VOIDED 2 OR 3 LITTLE DROPS, RETURNED TO BED. NO EMESIS WHILE UP TO BR.
--- NOTE | 2019-05-11 11:42 | OP ---
PATIENT NAME: YUE CHU MEDICAL RECORD: [id number] :89 LOCATION:[facility] ADMISSION DATE: SURGEON: NICKIE CHESTER MD DATE OF OPERATION: 05/10/2019 PREOPERATIVE DIAGNOSES: 1. Pelvic pain. 2. Dysfunctional uterine bleeding. POSTOPERATIVE DIAGNOSES: 1. Pelvic pain. 2. Dysfunctional uterine bleeding. 3. Suspect adenomyosis. 4. Left ovarian cyst. PROCEDURES PERFORMED: 1. Diagnostic laparoscopy. 2. Ovarian cystotomy. 3. Hysteroscopy. 4. Dilation with curettage. SURGEON: Nickie Chester ANESTHESIOLOGIST: Dr. Siegel. ANESTHESIA: General. FINDINGS: Upon entering the abdomen, the uterus was noted to be enlarged and boggy. Both right and left tubes were unremarkable. The left ovary has approximately 3 cm simple cyst and the right ovary is unremarkable. At the time of hysteroscopy, a lush endometrium is encountered without obvious mass or irregularity in contour. SPECIMEN REMOVED: Endometrial curettings. SPECIMEN DISPOSITION: Pathology. ESTIMATED BLOOD LOSS: Minimal. FLUIDS: 700 lactated Ringer's. URINE OUTPUT: 175 cc urine catheterized at the close of this procedure. DRAINS: None. COMPLICATIONS: None. INDICATIONS: The patient is a 28-year-old female with dysfunctional uterine bleeding and intense pelvic pain as manifested by dysmenorrhea and dyspareunia. The patient is considered for diagnostic laparoscopy and any indicated procedure with hysteroscopy, D and C. DESCRIPTION OF PROCEDURE: After informed consent was assured, the patient was taken to the operating room where anesthetic was obtained. The patient is now in [facility] and prepped and draped in the usual sterile fashion. OPERATIVE REPORT [id number] YUE CHU Incision was made at the umbilicus to accommodate a 5-mm trocar, which was inserted without difficulty. Accessory trocars were now placed 2 fingerbreadths above the symphysis. With the pelvis and abdomen distended, patient in Trendelenburg position and a blunt probe was used to sweep the bowel free of the pelvis. The above findings were encountered. Uterus is noted to be enlarged and boggy. Both tubes are unremarkable. Left ovary was noted to have a simple cyst. Bovie cautery was introduced into the pelvis with the hook and a cystotomy was performed and cyst drained. The fluid was cleared. The fluids, noted to be straw-colored. Her legs are now positioned for the hysteroscopy. After the trocars were removed, Pneumoperitoneum has been released and the skin closed and covered with Dermabond. Attention was directed to the vagina where speculum was introduced. The cervix grasped with tenaculum and then serially dilated to accommodate a diagnostic hysteroscope. This hysteroscope was passed into the uterine cavity under direct visualization with good visualization of both left and right ostia. The endometrium was noted to be lush without obvious irregularity or polypoid mass. The hysteroscopy was now discontinued and the cervix serially dilated to accommodate a #2 curette. This curette was passed to the fundus and with pressure applied against the uterine wall as it was withdrawn. Good cry was obtained throughout along with endometrial curettings for specimen. The single tooth tenaculum was removed at the close of this procedure and adequate hemostasis was noted at the puncture sites. Sponge, lap, needle counts were correct times 2. The patient was awakened and went to the recovery room in stable condition. TRANSINT:[id number] Voice Confirmation ID: [id number] DOCUMENT ID: [id number] NICKIE CHESTER MD at 1142 CC: [id number] DICTATION DATE: 05/10/19 0949 CUSTOMER BUSINESS MANAGER: 05/10/191933 [facility] 05/10/19 [facility] [address] [place] [address]
== END 2019-05-10 14:10 | disposition home or self-care (01) ==
LOC: D.OPS 11:43
PROVIDERS: ATTEND Obstetrics & Gynecology
DX: R10.2 Pelvic and perineal pain (principal); N93.8 Other specified abnormal uterine and vaginal bleeding; N83.202 Unspecified ovarian cyst, left side